=== PATIENT | male | born 1995 | race Caucasian/White ===

== ENCOUNTER 2020-05-24 00:47 | Emergency (ER) | payer OTHER ==
[~2020-05-24] VITALS: Ht 175.3 cm; Wt 71.7 kg
[2020-05-24 00:54] VITALS: BP 132/90
[2020-05-24] MEDS ORDERED: TETanus/Pertussis (Acell)/Diphther VAC/PF (Tdap-Adult) 0.5ml syringe IMVAC ONE (01:30)
[2020-05-24] MEDS ORDERED: LIDOcaine 1% W/epiNEPHrine 1:200,000 10ml vial IJ ONE (01:30)
== END 2020-05-24 03:00 | disposition home or self-care (01) ==
LOC: ER 00:49
DX: S01.511A Laceration without foreign body of lip, initial encounter (principal); Z98.890 Other specified postprocedural states; Z20.3 Contact with and (suspected) exposure to rabies; W22.8XXA Striking against or struck by other objects, initial encounter; Y93.89 Activity, other specified; Y92.89 Other specified places as the place of occurrence of the external cause; Y99.8 Other external cause status
CPT/HCPCS: 40650; 90471; 90715; 99283; 99284